=== PATIENT | male | born 2005 | race Caucasian/White ===

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

== ENCOUNTER 2025-10-24 18:28 | Emergency (ER) | payer OTHER ==
[~2025-10-24] VITALS: Ht 180.3 cm; Wt 91.2 kg
[2025-10-24 18:52] LABS: BASO # 0.0 10^3/uL (0.0-0.2); BASO % 0.6 % (0.0-1.0); EOS # 0.2 10^3/uL (0.0-0.5); EOS % 2.3 % (0.0-3.0); LYMPH # 1.7 10^3/uL (1.5-5.0); LYMPH % 24.2 % (24.0-44.0); MONO # 0.7 10^3/uL (0.0-0.8); MONO % 9.4 % (2.0-8.0); NEUTROPHILS # 4.4 10^3/uL (1.5-8.5); NEUTROPHILS % 63.4 % (36.0-66.0); PLATELET COUNT, AUTOMATED 219 10^3/uL (150-450)
[2025-10-24] MEDS ORDERED: MORPHINE 4 MG/ML 1 ML VIAL IV PRN (18:55)
[2025-10-24] MEDS ORDERED: ISOVUE-370 76% 100 ML VIAL As Ordered ONE (18:58)
[2025-10-24 19:18] LABS: CALCIUM LEVEL 8.4 MG/DL (8.5-10.1); CARBON DIOXIDE LEVEL 28 MMOL/L (20-31); CHLORIDE LEVEL 108 MMOL/L (98-107); CREATININE FOR GFR 0.84 MG/DL (0.70-1.30); GLOMERULAR FILTRATION RATE > 90.0 (>60); POTASSIUM SERUM 4.2 MMOL/L (3.5-5.1); SODIUM LEVEL 143 MMOL/L (136-145)
[2025-10-24] MEDS: NS (Normal Saline) 0.9% 1,000 ML IV ONE (20:09)
[2025-10-24] MEDS ORDERED: HOME MED LIST COMPLETE! XX SCH (20:10)
[2025-10-24 21:00] VITALS: BP 124/74; TEMP 98.2; O2SAT 98
== END 2025-10-24 21:04 | disposition home or self-care (01) ==
LOC: EDBD 18:28 → M ED 19:31
DX: S40.012A Contusion of left shoulder, initial encounter (principal); S70.02XA Contusion of left hip, initial encounter; Y92.9 Unspecified place or not applicable; Y93.9 Activity, unspecified; Y99.9 Unspecified external cause status; V49.40XA Driver injured in collision with unspecified motor vehicles in traffic accident, initial encounter; Z88.1 Allergy status to other antibiotic agents; Z88.2 Allergy status to sulfonamides; Z88.0 Allergy status to penicillin
CPT/HCPCS: 70450; 71260; 72125; 72128; 72131; 73000; 73030; 73060; 73080; 73502; 73552; 73564; 73590; 73630; 74177; 80047; 80048; 85025; 93041; 94760; 96360; 99285; Q9967